=== PATIENT | female | born 2005 | race Hispanic/Latino ===

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

== ENCOUNTER 2023-07-23 18:38 | Emergency (ER) | payer OTHER ==
[~2023-07-23] VITALS: Ht 160 cm; Wt 76.1 kg
[2023-07-23] MEDS ORDERED: IBUPROFEN 800 MG TAB PO ONE (21:30)
[2023-07-23 21:39] VITALS: BP 122/79
== END 2023-07-23 21:40 | disposition home or self-care (01) ==
LOC: ED 18:38
DX: S93.601A Unspecified sprain of right foot, initial encounter (principal); J45.909 Unspecified asthma, uncomplicated; G47.00 Insomnia, unspecified; X50.0XXA Overexertion from strenuous movement or load, initial encounter
CPT/HCPCS: 73630; 99283-25; A9270